=== PATIENT | male | born 2000 | race Caucasian/White ===

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

== ENCOUNTER → 2024-02-16 | Outpatient (CLI) | payer OTHER, BC, SELFPAY ==
--- NOTE | 2024-02-16 16:40 | RAD_ITS ---
STUDY: X-RAY - LUMBOSACRAL SPINE REASON FOR EXAM: Male, 24 years old. Lower back pain TECHNIQUE: 6 view(s) of the lumbosacral spine were obtained including oblique views and flexion and extension views.. COMPARISON: None FINDINGS: Normal lumbar lordosis. There is no substantial scoliosis. There is normal alignment of the vertebrae. Normal vertebral bodies and endplates. Normal disc space heights. Normal bilateral sacral ala, sacroiliac joints, and visualized sacrum. Large amount of fecal material is seen in the colon. RAD/L/S Spine w Bend Min 6 Vw IMPRESSION: Normal x-ray examination of the lumbosacral spine. Electronically Signed: Billy Blood MD at 14:48 EDT ,
== END | disposition home or self-care (01) ==
LOC: MTRAD 16:31
PROVIDERS: PCP Family Medicine; Referring Provider Family Medicine; Visit Provider Family Medicine
DX: M54.50 Low back pain, unspecified (principal)
CPT/HCPCS: 72114

== ENCOUNTER 2024-02-24 07:45 | Emergency (ER) | payer OTHER, BC, SELFPAY ==
[2024-02-24 07:47] VITALS: BP 141/82; PULSE 90; RESP 16; TEMP 36.5; O2SAT 100; BMI 30.2
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
[2024-02-24 08:48] VITALS: O2SAT 99
[2024-02-24 08:51] VITALS: BP 124/77; PULSE 82; RESP 16; TEMP 36.4; O2SAT 99
== END 2024-02-24 08:52 | disposition home or self-care (01) ==
PROVIDERS: Emergency Provider Emergency Medicine; PCP Family Medicine; Visit Provider Emergency Medicine
DX: S20.20XA Contusion of thorax, unspecified, initial encounter (principal); V49.9XXA Car occupant (driver) (passenger) injured in unspecified traffic accident, initial encounter
CPT/HCPCS: 99282

== ENCOUNTER → 2025-10-16 | Outpatient (CLI) | payer OTHER, BC, SELFPAY | END | disposition home or self-care (01) | PROVIDERS: PCP Family Medicine; Referring Provider Otolaryngology; Visit Provider Otolaryngology | DX: T78.40XA Allergy, unspecified, initial encounter (principal); X58.XXXA Exposure to other specified factors, initial encounter | CPT/HCPCS: 36415 ==